=== PATIENT | female | born 1970 | race African-American/Black ===

== ENCOUNTER 2016-10-02 10:10 | Emergency (ER) | payer SELFPAY ==
[2016-10-02 10:18] VITALS: BP 164/95
--- NOTE | 2016-10-02 10:44 | ER Document Report ---
ED General - General Chief Complaint: Medication Refill Stated Complaint: RX/REFILL Mode of Arrival: Ambulatory Information source: Patient, Relative Notes: 46 yr old female hx of seizure disorder presents with concerns of running out of her medication. Pt has been taking the dilantin, but ran out of her phenobarb. Pt has not had a seizure since last september. Denies any neuro deficits. Pt denies any other concenrs . Pt moved here 1 week ago TRAVEL OUTSIDE OF THE [place] IN LAST 30 DAYS: No - HPI Onset: Other Onset/Duration: Persistent Quality of pain: No pain Severity: Mild Pain Level: Denies Associated symptoms: Other Exacerbated by: Denies Relieved by: Denies Similar symptoms previously: Yes Recently seen / treated by doctor: Yes - Related Data Allergies/Adverse Reactions: No Known Drug Allergies Allergy (Verified 11/27/12 18:53) Past Medical History - Social History Smoking Status: Never Smoker Cigarette use (# per day): No Chew tobacco use (# tins/day): No Smoking Education Provided: No Family History: Reviewed & Not Pertinent Patient has suicidal ideation: No Patient has homicidal ideation: No Neurological Medical History: Reports: Hx Seizures Renal/ Medical History: Denies: Hx Peritoneal Dialysis - Immunizations Hx Diphtheria, Pertussis, Tetanus Vaccination: Yes Review of Systems - Review of Systems Notes: REVIEW OF SYSTEMS: CONSTITUTIONAL : Denies fever, chills, or sweats. Denies recent illness. EENT: Denies eye, ear, throat, or mouth pain or symptoms. Denies nasal or sinus congestion or discharge. Denies throat, tongue, or mouth swelling or difficulty swallowing. CARDIOVASCULAR: Denies chest pain. Denies palpitations or racing or irregular heart beat. Denies ankle edema. RESPIRATORY: Denies cough, cold, or chest congestion. Denies shortness of breath, difficulty breathing, or wheezing. GASTROINTESTINAL: Denies abdominal pain or distention. Denies nausea, vomiting , or diarrhea. Denies blood in vomitus, stools, or per rectum. Denies black, tarry stools. Denies constipation. GENITOURINARY: Denies difficulty urinating, painful urination, burning, frequency, blood in urine, or discharge. FEMALE GENITOURINARY: Denies vaginal bleeding, heavy or abnormal periods, irregular periods. Denies vaginal discharge or odor. MUSCULOSKELETAL: Denies back or neck pain or stiffness. Denies joint pain or swelling. SKIN: Denies rash, lesions or sores. HEMATOLOGIC : Denies easy bruising or bleeding. LYMPHATIC: Denies swollen, enlarged glands. NEUROLOGICAL: Denies confusion or altered mental status. Denies passing out or loss of consciousness. Denies dizziness or lightheadedness. Denies headache. Denies weakness or paralysis or loss of use of either side. Denies problems with gait or speech. Denies sensory loss, numbness, or tingling. Denies seizures. PSYCHIATRIC: Denies anxiety or stress. Denies depression, suicidal ideation, or homicidal ideation. ALL OTHER SYSTEMS REVIEWED AND NEGATIVE. Dictation was performed using [employer] voice recognition software PHYSICAL EXAMINATION: GENERAL: Well-appearing, well-nourished and in no acute distress. HEAD: Atraumatic, normocephalic. EYES: Pupils equal round and reactive to light, extraocular movements intact, conjunctiva are normal. ENT: Nares patent, oropharynx clear without exudates. Moist mucous membranes. NECK: Normal range of motion, supple without lymphadenopathy LUNGS: Breath sounds clear to auscultation bilaterally and equal. No wheezes rales or rhonchi. HEART: Regular rate and rhythm without murmurs ABDOMEN: Soft, nontender, nondistended abdomen. No guarding, no rebound. No masses appreciated. Female : deferred Musculoskeletal: Normal range of motion, no pitting or edema. No cyanosis. NEUROLOGICAL: Cranial nerves grossly intact. Normal speech, normal gait. Normal sensory, motor exams finger to nose [id number] PSYCH: Normal mood, normal affect. SKIN: Warm, Dry, normal turgor, no rashes or lesions noted. Physical Exam - Vital signs Vitals: Temp Pulse Resp BP Pulse Ox 98.2 F 93 16 164/95 H 97 10/02/16 10:14 10/02/16 10:14 10/02/16 10:14 10/02/16 10:14 10/02/16 10:14 Course - Re-evaluation Re-evalutation: 10/02/16 10:47 Patient has no other complaints is neurologically intact. She will be given refill for 1 month as well as follow-up with neurology After performing a Medical Screening Examination, I estimate there is LOW risk for ACUTE GLAUCOMA, TEMPORAL ARTERITIS, MENINGITIS, INCRANIAL HEMORRHAGE, or ISCHEMIC STROKE thus I consider the discharge disposition reasonable. I have reevaluated this patient multiple times and no significant life threatening changes are noted. The patient and I have discussed the diagnosis and risks, and we agree with discharging home with close follow-up with the understanding that symptoms and presentations can change. We also discussed returning to the Emergency Department immediately if new or worsening symptoms occur. We have discussed the symptoms which are most concerning (e.g., changing or worsening symptoms, new numbness or weakness, vomiting, fever) that necessitate immediate return. - Vital Signs Vital signs: Temp Pulse Resp BP Pulse Ox 98.2 F 93 16 164/95 H 97 10/02/16 10:14 10/02/16 10:14 10/02/16 10:14 10/02/16 10:14 10/02/16 10:14 Discharge - Discharge Clinical Impression: Medication refill, Seizure disorder Condition: Stable Disposition: HOME, SELF-CARE Instructions: Seizure, Known Epileptic ([facility]) Prescriptions: Phenobarbital 100 mg PO BID 30 Days Phenytoin Sodium Extended [Dilantin] 60 mg PO Q8 30 Days Referrals: STEFAN ZHU MD [ACTIVE STAFF] - Follow up tomorrow TOBIN TERESA MD [EMERITUS] - Follow up tomorrow
== END 2016-10-02 10:49 | disposition home or self-care (01) ==
LOC: ER 10:10
DX: Z76.0 Encounter for issue of repeat prescription (principal); G40.909 Epilepsy, unspecified, not intractable, without status epilepticus; Z79.899 Other long term (current) drug therapy
CPT/HCPCS: 99281

== ENCOUNTER 2016-11-07 15:02 | Emergency (ER) | payer SELFPAY ==
--- NOTE | 2016-11-07 16:22 | ER Document Report ---
HPI - HPI Patient complains to provider of: Patient Pain Level: 5 Context: Patient is a 46-year-old female who presents emergency department for medication refill. Patient has been on chronic pain management for the past 10 years. She states she uses 100 mcg fentanyl patch every 72 hours and then takes 15 mg of oxycodone every 6 hours as needed for pain. Patient states that she ran out on Tuesday. Patient states that she is due to see her primary care physician on Tuesday. She admits to mild diarrhea but otherwise denies any other complaints. She has chronic pain from a fall in 2006 with injuries to her neck and back. - CARDIOVASCULAR Cardiovascular: DENIES: Chest pain - REPRODUCTIVE Reproductive: DENIES: : - DERM Skin Color: Normal Past Medical History - Social History Smoking Status: Current Every Day Smoker Chew tobacco use (# tins/day): No Frequency of alcohol use: None Drug Abuse: None Family History: Reviewed & Not Pertinent Patient has suicidal ideation: No Patient has homicidal ideation: No Neurological Medical History: Reports: Hx Seizures Renal/ Medical History: Denies: Hx Peritoneal Dialysis - Immunizations Hx Diphtheria, Pertussis, Tetanus Vaccination: Yes Vertical Provider Document - CONSTITUTIONAL Agree With Documented VS: Yes Exam Limitations: No Limitations General Appearance: WD/WN, No Apparent Distress - INFECTION CONTROL TRAVEL OUTSIDE OF THE [place] IN LAST 30 DAYS: No - NECK Neck: Normal Inspection, Other - No evidence of spinous process or paraspinous muscle tenderness. Full range of motion. No motion tenderness - RESPIRATORY Respiratory: Breath Sounds Normal, No Respiratory Distress, Chest Non-Tender O2 Sat by Pulse Oximetry: 97 - CARDIOVASCULAR Cardiovascular: Regular Rate, Regular Rhythm, No Murmur Pulses: Normal: Radial, Dorsalis pedis - BACK Back: Normal Inspection Notes: Evidence of spinous process or paraspinous muscle tenderness. No evidence of spinous process step-offs, deformities, ecchymosis. Patient's gait is steady and able to ambulate without any difficulty - MUSCULOSKELETAL/EXTREMETIES Musculoskeletal/Extremeties: MAEW, FROM, Non-Tender, No Edema. negative: Eccymosis - NEURO Level of Consciousness: Awake, Alert, Appropriate Motor/Sensory: No Motor Deficit, No Sensory Deficit - DERM Integumentary: Warm, Dry, No Rash Course - Re-evaluation Re-evalutation: 11/07/16 19:36 The patient presents with low back pain without signs of spinal cord compression , cauda equina syndrome, infection, aneurysm, or other serious etiology. The patient is neurologically intact. Given the extremely low risk of these diagnoses further testing and evaluation for these possibilities does not appear to be indicated at this time. The patient has been instructed to return if the symptoms worsen or change in any way. Discussed with patient our chronic pain policy in the emergency department. Discussed with her she will need to follow-up with primary care - Vital Signs Vital signs: Temp Pulse Resp BP Pulse Ox 98.4 F 102 H 18 157/99 H 97 11/07/16 15:17 11/07/16 15:17 11/07/16 15:17 11/07/16 15:17 11/07/16 15:17 Discharge - Discharge Clinical Impression: Opioid withdrawal Condition: Good Disposition: HOME, SELF-CARE Instructions: Diarrhea, Nonspecific ([facility]) Additional Instructions: Clonidine will help control your blood pressure and Zofran will help with nausea Please follow up with Dr. Malik on your scheduled appointment Chronic Pain Control Stress, inactivity, and depression make pain more severe regardless of the cause of the pain. Stress and poor physical condition can cause pain such as headaches and backache. Relaxation: Rest in a quiet place with your eyes closed for 20 minutes twice daily. Concentrate on a pleasant image, or simply "feel" your breathing. Clear your mind. Stress management: Deal with your "stressors." Either take action, or eliminate the stressor from your life. Don't let things hang over you. Accept those things you can't change. Nutrition: Eat small, balanced meals -- don't skip, don't overeat. Meals should be high-carbohydrate, low-sugar, low-fat. Exercise: Exercise helps painful conditions and eases stress. Get 30 minutes of moderate exercise, five days a week. Do an activity that does not flare your pain. Precautions: Pain which continues to disrupt daily activities, or which changes in nature, requires a medical evaluation. Pain Clinic referral is available. We do not manage chronic pain in the Emergency Department. We will try to appropriately help you through an acute flare of your chronic painful condition , but for on-going chronic pain that does not improve, you will need to see your private doctor or paint striping machine operator. We do not provide repeated medication management of chronic painful conditions. If you wish, we can provide the name of local pain management physicians. Prescriptions: Clonidine HCl 0.1 mg PO BID 7 Days Ibuprofen [Motrin 800 mg Tablet] 800 mg PO Q8H PRN #30 tab PRN Reason: Meloxicam [Mobic 7.5 Mg Tablet] 7.5 mg PO BID 7 Days Ondansetron HCl [Zofran 4 mg Tablet] 1 - 2 tab PO Q4H PRN 7 Days PRN Reason: Forms: Elevated Blood Pressure, Return to Work Referrals: ROB MALIK DO [Primary Care Provider] - Follow up in 3-5 days
[2016-11-07] MEDS ORDERED: IBUPROFEN 800 MG TABLET PO ONE (16:26)
[2016-11-07 16:40] VITALS: BP 152/84
== END 2016-11-07 16:37 | disposition home or self-care (01) ==
LOC: ER 15:02
DX: F11.23 Opioid dependence with withdrawal (principal); F17.200 Nicotine dependence, unspecified, uncomplicated
CPT/HCPCS: 99283